=== PATIENT | female | born 2005 | race Caucasian/White ===

== ENCOUNTER 2024-11-26 11:08 | Emergency (ER) | payer MEDICAID ==
[~2024-11-26] VITALS: Ht 162.6 cm; Wt 94.0 kg
[2024-11-26 11:27] VITALS: O2SAT 99
[2024-11-26 11:54] LABS: BASOPHILS % 0.7 % (0.0-2.0); EOSINOPHILS % 0.9 % (0.0-5.0); HEMATOCRIT. 39.5 % (36.0-48.0); HEMOGLOBIN. 13.7 g/dL (12.0-16.0); LYMPHOCYTES % 34.9 % (20.0-50.0); MONOCYTES % 4.6 % (2.0-8.0); NEUTROPHILS % 58.9 % (40.0-76.0); RED BLOOD CELL COUNT 4.31 mill/uL (4.2-5.4); RED CELL DISTRIBUTION WIDTH 12.7 % (11.6-14.6)
[2024-11-26 12:05] LABS: CLARITY URINE CLOUDY (CLEAR); COLOR URINE YELLOW (YELLOW); GLUCOSE URINE NEGATIVE (NEGATIVE); KETONES URINE NEGATIVE (NEGATIVE); LEUKOCYTE ESTERASE URINE NEGATIVE (NEGATIVE); NITRITE URINE NEGATIVE (NEGATIVE); OCCULT BLOOD URINE NEGATIVE (NEGATIVE); PH URINE 6.0 (4.5-8.0); PROTEIN URINE NEGATIVE (NEGATIVE); SPECIFIC GRAVITY URINE 1.012 (1.005-1.030); UROBILINOGEN URINE 0.2 E.U./dL (0.2-1.0)
[2024-11-26 12:07] LABS: CREATININE 0.7 mg/dL (0.6-1.0)
[2024-11-26 12:08] LABS: UREA NITROGEN BLOOD 6 mg/dL (9-23)
[2024-11-26 12:09] LABS: ASPARTATE AMINOTRANSFERASE 29 IU/L (<34); BILIRUBIN DIRECT 0.1 mg/dL (<=3.0)
[2024-11-26 12:10] LABS: BILIRUBIN TOTAL 0.6 mg/dL (0.1-1.0); PROTEIN TOTAL 7.4 g/dL (6.0-8.3)
[2024-11-26 12:12] LABS: HCG SCREEN NEGATIVE
[2024-11-26 12:13] LABS: UCG KIT LOT# 0000946166; UCG SCREEN NEGATIVE
[2024-11-26 12:25] LABS: PLATELET 306 x1000/uL (130-400)
[2024-11-26 12:38] LABS: SQUAMOUS EPITHELIAL CELL URINE 3+ /lpf (RARE/1+)
[2024-11-26 12:40] LABS: BACTERIA URINE 1+; RBC URINE NONE SEEN /hpf (0-2); WBC URINE 0-2 /hpf (0-2)
[2024-11-26] MEDS: KETOROLAC 30MG/ML VIAL IM ONE (13:06)
[2024-11-26 13:19] VITALS: BP 114/60; PULSE 81; RESP 18; TEMP 36.9; O2SAT 97
== END 2024-11-26 13:23 | disposition home or self-care (01) ==
LOC: ER 11:08
DX: K76.0 Fatty (change of) liver, not elsewhere classified (principal); Z90.49 Acquired absence of other specified parts of digestive tract
CPT/HCPCS: 99285; 76705; 80076; 80048; 81003; 81025; 84703; 83690; 85025; 36415; 96372; J1885

== ENCOUNTER 2025-01-26 19:02 | Emergency (ER) | payer BC, MEDICAID ==
[~2025-01-26] VITALS: Ht 162.6 cm; Wt 99.0 kg
[2025-01-26 19:07] VITALS: TEMP 36.8; O2SAT 97
[2025-01-27 00:02] LABS: CLARITY URINE CLOUDY (CLEAR); COLOR URINE YELLOW (YELLOW); GLUCOSE URINE NEGATIVE (NEGATIVE); KETONES URINE NEGATIVE (NEGATIVE); LEUKOCYTE ESTERASE URINE NEGATIVE (NEGATIVE); NITRITE URINE NEGATIVE (NEGATIVE); OCCULT BLOOD URINE NEGATIVE (NEGATIVE); PH URINE 5.5 (4.5-8.0); PROTEIN URINE NEGATIVE (NEGATIVE); SPECIFIC GRAVITY URINE 1.019 (1.005-1.030); UROBILINOGEN URINE 0.2 E.U./dL (0.2-1.0)
[2025-01-27] MEDS: CYCLOBENZAPRINE 10MG TABLET PO ONE (00:44)
[2025-01-27] MEDS: KETOROLAC 30MG/ML VIAL IM ONE (00:44)
[2025-01-27] MEDS ORDERED: CYCL10TA21 MT (00:53)
[2025-01-27] MEDS ORDERED: NAPR-1176 MT (00:53)
[2025-01-27 01:00] LABS: SQUAMOUS EPITHELIAL CELL URINE 2+ /lpf (RARE/1+)
[2025-01-27 01:01] LABS: WBC URINE 0-2 /hpf (0-2)
[2025-01-27 01:02] LABS: BACTERIA URINE TRACE
[2025-01-27 01:17] VITALS: BP 107/64; PULSE 63; RESP 15; O2SAT 99
== END 2025-01-27 01:18 | disposition home or self-care (01) ==
LOC: ER 19:02
DX: M54.50 Low back pain, unspecified (principal); Z90.49 Acquired absence of other specified parts of digestive tract
CPT/HCPCS: 99283; 81003; 81025; 96372; J1885